=== PATIENT | male | born 1995 | race Caucasian/White ===

== ENCOUNTER 2016-09-08 19:19 | Inpatient (IN) | payer OTHER, BC ==
[2016-09-08 19:20] VITALS: O2SAT 100
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
[2016-09-08 19:52] LABS: AUTOMATED NEUTROPHIL # 7.3 TH/MM3 (1.8-7.7); BASOPHIL # 0.1 TH/MM3 (0-0.2); BASOPHIL % 0.5 % (0.0-2.0); EOSINOPHIL # 0.1 TH/MM3 (0-0.4); EOSINOPHIL % 0.6 % (0.0-4.0); HEMATOCRIT 45.2 % (39.0-51.0); I-STAT POTASSIUM 3.2 MMOL/L (3.5-4.9); LYMPH % 32.7 % (9.0-44.0); MEAN CELL VOLUME 88.3 FL (80.0-100.0); MEAN CORPUSCULAR HEMOGLOBIN 30.4 PG (27.0-34.0); MEAN CORPUSCULAR HGB CONC 34.4 % (32.0-36.0); MONO % 6.7 % (0.0-8.0); NEUT % 59.5 % (16.0-70.0); PLATELET COUNT 272 TH/MM3 (150-450); RED BLOOD COUNT 5.12 MIL/MM3 (4.50-5.90); RED CELL DISTRIBUTION WIDTH 13.4 % (11.6-17.2); WHITE BLOOD COUNT 12.3 TH/MM3 (4.0-11.0)
[2016-09-08 19:59] LABS: HEMO FLAGS AUTO DIFF
[2016-09-08 20:00] VITALS: BP 132/67; PULSE 104; PULSE 96; RESP 26; TEMP 97.7; O2SAT 97
[2016-09-08] MEDS ORDERED: ONDANSETRON HCL 4 MG/2 ML VIAL IV PRN (20:00)
[2016-09-08] MEDS ORDERED: SODIUM CHLORIDE 0.9% FLUSH 10 ML FLUSH IV FLUSH PRN (20:00)
[2016-09-08] MEDS: PANTOPRAZOLE SOD 40 MG DELAYED RELEASE TAB PO SCH (20:00)
[2016-09-08] MEDS ORDERED: Post-op Orders (for Pharmacy) MISC XX ONE (20:00)
[2016-09-08] MEDS ORDERED: NALOXONE HCL 0.4 MG/ML AMP IV PRN (20:00)
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
[2016-09-08] MEDS ORDERED: IOHEXOL 350 MG/ML 10 ML VIAL (for RAD DIAG) IV ONE (20:01)
[2016-09-08 20:03] LABS: APTT (PATIENT) 22.5 SEC (24.3-30.1); PROTHROMBIN TIME - PATIENT 11.1 SEC (9.8-11.6)
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
[2016-09-08 20:27] LABS: BANDS 2 % (0-6); EOSINOPHILS 1 % (0-4); METAMYELOCYTES 1 % (0-1); MYELOCYTES 4 % (0-0); NEUTROPHIL # MANUAL DIFF 8.4 TH/MM3 (1.8-7.7); POLYS (SEG NEUTROPHILS) 61 % (16-70); WBC DIFF SAMPLE 100
[2016-09-08 20:28] LABS: PLATELET ESTIMATE SMEAR NORMAL (NORMAL); PLATELET MORPHOLOGY NORMAL (NORMAL); SCAN/DIFF FINAL DIFF MANUAL
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
[2016-09-08] MEDS: DOCUSATE SODIUM 100 MG CAP PO SCH (21:00)
[2016-09-08] MEDS ORDERED: ONDANSETRON HCL 4 MG/2 ML VIAL IV PUSH PRN (21:15)
[2016-09-08] MEDS ORDERED: MORPHINE SULFATE 8 MG/ML INJ IV PUSH PRN (21:15)
[2016-09-08] MEDS: MORPHINE SULFATE 8 MG/ML INJ IV PUSH PRN (21:48)
[2016-09-08 22:00] VITALS: PULSE 94
[2016-09-08] MEDS ORDERED: diphenhydrAMINE HCL 50 MG/ML VIAL IV PUSH PRN (23:30)
[2016-09-08] MEDS: levETIRAcetam INJ 500 MG in SODIUM CHLORIDE 0.9% INJ 100 ML IV SCH (23:46)
[2016-09-08] MEDS: SODIUM CHLOR 0.9% 1000 ML INJ 1,000 ML IV SCH (23:47)
[2016-09-08] MEDS: SODIUM CHLORIDE 0.9% FLUSH 10 ML FLUSH IV FLUSH SCH (23:47)
[2016-09-09] VITALS (12 sets, daily range): BP systolic 107–123; BP diastolic 55–65; PULSE 60–90; RESP 13–30; TEMP 98.2–99.5; O2SAT 93–98
[2016-09-09] MEDS: ICU - POTASSIUM CHLORIDE/AQUEOUS SOLN 20 MEQ/100 ML IVPB IV PRN ×3 (00:51→05:25)
[2016-09-09] MEDS ORDERED: ICU - MAGNESIUM OXIDE 400 MG TAB PO PRN (01:00)
[2016-09-09] MEDS ORDERED: ICU - SODIUM PHOSPHATE 30 MMOL/NS 250 ML IV PRN ×2 (01:00)
[2016-09-09] MEDS ORDERED: ICU - CALL ORDERING PHYSICIAN PRN (01:00)
[2016-09-09] MEDS ORDERED: ICU - POTASSIUM PHOSPHATE MONOBASIC 500 MG TAB PO PRN (01:00)
[2016-09-09] MEDS ORDERED: ICU - MAGNESIUM SULFATE 2 GM/NS 100 ML IV PRN ×2 (01:00)
[2016-09-09] MEDS ORDERED: ICU - POTASSIUM PHOSPHATE 30 MMOL/NS 250 ML IV PRN ×2 (01:00)
[2016-09-09] MEDS ORDERED: ICU - MAGNESIUM SULFATE 4 GM/NS 100 ML IV PRN ×2 (01:00)
[2016-09-09] MEDS ORDERED: ICU - POTASSIUM CHLORIDE/AQUEOUS SOLN 40 MEQ/100 ML IVPB IV PRN (01:00)
[2016-09-09] MEDS ORDERED: ICU - D/C ICU ELECTROLYTE ORDERS PRN (01:00)
[2016-09-09] MEDS ORDERED: POTASSIUM CHLORIDE 25 MEQ EFFERVESCENT TAB PO PRN (01:00)
[2016-09-09] MEDS: MORPHINE SULFATE 8 MG/ML INJ IV PUSH PRN ×4 (02:03→21:14)
[2016-09-09 04:37] LABS: AUTOMATED NEUTROPHIL # 14.4 TH/MM3 (1.8-7.7); BASOPHIL % 0.1 % (0.0-2.0); HEMATOCRIT 41.1 % (39.0-51.0); HEMO FLAGS DIFF FINAL; LYMPH % 5.7 % (9.0-44.0); LYMPHOCYTE # 0.9 TH/MM3 (1.0-4.8); MEAN CELL VOLUME 88.6 FL (80.0-100.0); MEAN CORPUSCULAR HEMOGLOBIN 29.8 PG (27.0-34.0); MEAN CORPUSCULAR HGB CONC 33.6 % (32.0-36.0); NEUT % 86.2 % (16.0-70.0); PLATELET COUNT 205 TH/MM3 (150-450); RED BLOOD COUNT 4.63 MIL/MM3 (4.50-5.90); RED CELL DISTRIBUTION WIDTH 13.8 % (11.6-17.2); WHITE BLOOD COUNT 16.7 TH/MM3 (4.0-11.0)
[2016-09-09] MEDS: ONDANSETRON HCL 4 MG/2 ML VIAL IV PUSH PRN ×3 (04:38→16:37)
[2016-09-09] MEDS: oxyCODONE/ACETAMINOPHEN 5 MG/325 MG TAB PO PRN ×2 (04:38→09:53)
[2016-09-09 04:59] LABS: BICARBONATE 26.5 MEQ/L (21.0-32.0); POTASSIUM 4.1 MEQ/L (3.5-5.1)
[2016-09-09] MEDS: SODIUM CHLOR 0.9% 1000 ML INJ 1,000 ML IV SCH ×2 (06:20→17:00)
[2016-09-09] MEDS: FLUoxetine HCL 20 MG CAP PO SCH (09:26)
[2016-09-09] MEDS: SODIUM CHLORIDE 0.9% FLUSH 10 ML FLUSH IV FLUSH SCH ×2 (09:26→21:00)
[2016-09-09] MEDS: levETIRAcetam INJ 500 MG in SODIUM CHLORIDE 0.9% INJ 100 ML IV SCH ×2 (09:26→20:59)
[2016-09-09] MEDS: DOCUSATE SODIUM 100 MG CAP PO SCH ×2 (09:26→21:00)
[2016-09-09] MEDS ORDERED: DEXTROSE 50% IN WATER 50 ML VIAL(D50) IV PRN (10:00)
[2016-09-09] MEDS ORDERED: GLUCAGON 1 MG/ML VIAL OTHER PRN (10:00)
--- NOTE | 2016-09-09 12:19 | RADRPT ---
EXAM DATE/TIME: 09/09/2016 12:00 [place] COMPARISON: CT BRAIN W/O CONTRAST, September 08, 2016, 19:32. INDICATIONS : Follow up subdural hematoma. Left side headache. RADIATION DOSE: 56.35 CTDIvol (mGy) MEDICAL HISTORY : None SURGICAL HISTORY : None. ENCOUNTER: Subsequent ACUITY: 2 days PAIN SCALE: 3/10 LOCATION: Left cranial TECHNIQUE: Multiple contiguous axial images were obtained of the head. Using automated exposure control and adj ustment of the mA and/or kV according to patient size, radiation dose was kept as low as reasonably a chievable to obtain optimal diagnostic quality images. DICOM format image data is available electro nically for review and comparison. FINDINGS: CEREBRUM: Left-sided subdural hemorrhage has decreased in prominence now measuring 2-3 mm. There is also some h emorrhage overlying the tentorium. No significant midline shift on current study. The ventricles are normal for age. No evidence of midline shift, mass lesion, or acute infarction. POSTERIOR FOSSA: The cerebellum and brainstem are intact. The 4th ventricle is midline. The cerebellopontine angle i s unremarkable. EXTRACRANIAL: The visualized portion of the orbits is intact. SKULL: The calvaria is intact. No evidence of skull fracture. CONCLUSION: 1. Decrease in left-sided subdural hemorrhage, now measuring 2-3 mm. 2. Minimal hemorrhage overlying the tentorium. 3. No significant midline shift. Rafy Gaming MD on September 09, 2016 at 12:15 Board Certified Radiologist. This report was verified electronically.
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
--- NOTE | 2016-09-09 18:32 | EKG ---
Date Performed: 09/09/2016 Time Performed: 04:51:22 PTAGE: 89 years EKG: Sinus arrhythmia. Probably normal EKG NO PREVIOUS TRACING DOCTOR: Gerry Bedoya Interpretating Date/Time 09/09/2016 18:31:06
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
[2016-09-09] MEDS: PANTOPRAZOLE SOD 40 MG DELAYED RELEASE TAB PO SCH (21:00)
[2016-09-10] VITALS (8 sets, daily range): BP systolic 100–124; BP diastolic 49–65; PULSE 60–70; RESP 13–20; TEMP 98–99.3; O2SAT 96–98
[2016-09-10] MEDS: ONDANSETRON HCL 4 MG/2 ML VIAL IV PUSH PRN (01:47)
[2016-09-10] MEDS: MORPHINE SULFATE 8 MG/ML INJ IV PUSH PRN ×2 (01:48→05:50)
[2016-09-10] MEDS: SODIUM CHLOR 0.9% 1000 ML INJ 1,000 ML IV SCH (02:29)
[2016-09-10 05:05] LABS: AUTOMATED NEUTROPHIL # 6.4 TH/MM3 (1.8-7.7); BASOPHIL % 0.3 % (0.0-2.0); EOSINOPHIL % 0.5 % (0.0-4.0); HEMATOCRIT 38.5 % (39.0-51.0); HEMO FLAGS DIFF FINAL; LYMPH % 17.6 % (9.0-44.0); LYMPHOCYTE # 1.5 TH/MM3 (1.0-4.8); MEAN CELL VOLUME 88.7 FL (80.0-100.0); MEAN CORPUSCULAR HEMOGLOBIN 30.3 PG (27.0-34.0); MEAN CORPUSCULAR HGB CONC 34.1 % (32.0-36.0); MONO % 7.9 % (0.0-8.0); NEUT % 73.7 % (16.0-70.0); PLATELET COUNT 170 TH/MM3 (150-450); RED BLOOD COUNT 4.34 MIL/MM3 (4.50-5.90); RED CELL DISTRIBUTION WIDTH 13.6 % (11.6-17.2); WHITE BLOOD COUNT 8.7 TH/MM3 (4.0-11.0)
[2016-09-10 05:20] LABS: ANION GAP 6 MEQ/L (5-15); BLOOD UREA NITROGEN 6 MG/DL (7-18); CHLORIDE 107 MEQ/L (98-107); GLOMERULAR FILTRATION RATE 116 ML/MIN (>89); POTASSIUM 3.6 MEQ/L (3.5-5.1); SODIUM (NA) 140 MEQ/L (136-145)
[2016-09-10 05:22] LABS: ALT (GPT) 37 U/L (9-52); AST (GOT) 32 U/L (15-39)
[2016-09-10 05:24] LABS: ALKALINE PHOSPHATASE 59 U/L (45-117); TOTAL BILIRUBIN ADULT 0.6 MG/DL (0.2-1.0)
[2016-09-10] MEDS: FLUoxetine HCL 20 MG CAP PO SCH (08:35)
[2016-09-10] MEDS: DOCUSATE SODIUM 100 MG CAP PO SCH (08:35)
[2016-09-10] MEDS: levETIRAcetam INJ 500 MG in SODIUM CHLORIDE 0.9% INJ 100 ML IV SCH (08:36)
[2016-09-10] MEDS: SODIUM CHLORIDE 0.9% FLUSH 10 ML FLUSH IV FLUSH SCH ×2 (09:00→22:07)
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
[2016-09-10] MEDS ORDERED: SUMAtriptan SUCCINATE 25 MG TAB PO PRN (10:15)
[2016-09-10] MEDS ORDERED: LACTULOSE SYRUP 20 GM/30 ML CUP PO ONE (10:15)
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
[2016-09-10] MEDS: ACETAMINOPHEN 325 MG TAB PO PRN (15:54)
[2016-09-10] MEDS: PANTOPRAZOLE SOD 40 MG DELAYED RELEASE TAB PO SCH (22:06)
[2016-09-10] MEDS: DOCUSATE SODIUM 50 MG/SENNA 8.6 MG TAB PO SCH (22:07)
[2016-09-10] MEDS: levETIRAcetam 500 MG TAB PO SCH (22:07)
[2016-09-11] VITALS: BP 115/58; PULSE 59; RESP 20; TEMP 97.6; O2SAT 100
[2016-09-11 04:00] VITALS: BP 109/61; PULSE 56; RESP 20; TEMP 97.6; O2SAT 99
[2016-09-11 08:00] VITALS: BP 116/60; PULSE 66; RESP 19; TEMP 98.4; O2SAT 99
[2016-09-11] MEDS: SODIUM CHLORIDE 0.9% FLUSH 10 ML FLUSH IV FLUSH SCH (10:19)
[2016-09-11] MEDS: ACETAMINOPHEN 325 MG TAB PO PRN (10:20)
[2016-09-11] MEDS: levETIRAcetam 500 MG TAB PO SCH (10:20)
[2016-09-11] MEDS: FLUoxetine HCL 20 MG CAP PO SCH (10:21)
[2016-09-11] MEDS: DOCUSATE SODIUM 50 MG/SENNA 8.6 MG TAB PO SCH (10:21)
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
[2016-09-11] MEDS ORDERED: ACET1TAB86 PO (11:53)
[2016-09-11 12:00] VITALS: BP 116/60; PULSE 64; RESP 19; TEMP 97.7; O2SAT 98
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
[2016-09-11] MEDS: ONDANSETRON HCL 4 MG/2 ML VIAL IV PUSH PRN (12:56)
== END 2016-09-11 16:47 | disposition home or self-care (01) | DRG 84 ==
LOC: NEPI 19:19 → EDBD 19:50 → NEDA 19:50 → N03B 19:54 → N05B 09-10 13:52
PROVIDERS: ADMIT Surgery; ATTEND Surgery
DX: S06.5X9A Traumatic subdural hemorrhage with loss of consciousness of unspecified duration, initial encounter (principal); S06.6X9A Traumatic subarachnoid hemorrhage with loss of consciousness of unspecified duration, initial encounter; R40.2412 Glasgow coma scale score 13-15, at arrival to emergency department; V49.49XA Driver injured in collision with other motor vehicles in traffic accident, initial encounter; Y92.410 Unspecified street and highway as the place of occurrence of the external cause
CPT/HCPCS: 70450; 71010; 71260; 72125; 72170; 74177; 80048; 80053; 82435; 82565; 82947; 82948; 84132; 84295; 84520; 85007; 85025; 85027; 85610; 85730; 86850; 86900; 86901; 87641; 93005; 94150; J1953; J2270; J2405; J3480; J7030; Q9967